=== PATIENT | female | born 1960 | race Caucasian/White ===

== ENCOUNTER 2024-12-07 08:00 | Day surgery (SDC) | payer OTHER ==
[2024-12-03 11:07] VITALS: BP 150/83
[~2024-12-07] VITALS: Ht 170.2 cm; Wt 93.0 kg
[~2024-12-07 08:00] MED LIST: ANASTROZOLE1 MG PO; COZAAR100 MG PO; MULTIPLE VITAM1 EAC2 PO; NORVASC5 MG PO; ROSUVASTATIN CA20 MG PO; TRIAMTERENE-HC1 EAC3 PO
[2024-12-07] MEDS ORDERED: CHLORHEXIDINE GLUCONATE 120 ML BOTTLE TOP ONE (09:50)
[2024-12-07] MEDS ORDERED: CEFAZOLIN SODIUM 1,000 MG VIAL ONE (09:51)
[2024-12-07] MEDS ORDERED: GENTAMICIN SULFATE 40 MG/ML VIAL ONE (12:49)
[2024-12-07] MEDS ORDERED: VANCOMYCIN HCL 1,000 MG VIAL ONE (12:49)
[2024-12-07] MEDS ORDERED: POVIDONE-IODINE SCRUB 118 ML BOTT TOP ONE (12:49)
[2024-12-07] MEDS ORDERED: CEFAZOLIN SODIUM 1,000 MG VIAL IV SCH (15:15)
[2024-12-07] MEDS ORDERED: SUGAMMADEX SODIUM 200 MG/2 ML VIAL IV ONE (16:27)
== END 2024-12-07 19:20 | disposition home or self-care (01) ==
LOC: CIR.AMB 08:00
PROVIDERS: ATTEND Surgery
DX: D05.11 Intraductal carcinoma in situ of right breast (principal); N65.1 Disproportion of reconstructed breast; N64.89 Other specified disorders of breast